=== PATIENT | male | born 1985 | race Caucasian/White ===

== ENCOUNTER 2023-01-05 01:41 | Emergency (ER) | payer OTHER, SELFPAY ==
[2023-01-05 01:42] VITALS: BP 136/93; PULSE 74; RESP 16; TEMP 36.5; O2SAT 100
--- NOTE | 2023-01-05 02:22 | ED.GENADULT ---
HPI - General Adult General Chief complaint: Eye Problems Stated complaint: eye irritation Time Seen by Provider: 01/05/23 02:03 History of Present Illness HPI narrative: patient is a 37-year-old gentleman presents emerged from with chief complaint of foreign body sensation in the left eye. 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 Related Data Allergies Allergy/AdvReac Type Severity Reaction Status Date / Time Penicillins Allergy Mild HIVES Unverified 05/21/08 12:42 amoxicillin Allergy Unknown Verified 12/08/14 13:34 Review of Systems Review of Systems: A 10 system review of systems was completed on the patient and is negative except for what is stated in the HPI. Nursing and ancillary documentation was reviewed. [facility], [facility] Family History Family History Other Family history of malignant neoplasm Social History Social History Smoking status: Never smoker Alcohol intake: current Exam Narrative: GENERAL: Well-appearing, well-nourished, and in no acute distress. HEAD: Normocephalic, atraumatic. EYES: PERRLA and EOMI. Small foreign body present at the 2 o'clock position ENT: Nares clear, no rhinorrhea or epistaxis. Mucous membranes moist. NECK: Supple. CHEST: Clear to auscultation. No respiratory distress. HEART: Regular rate and rhythm. No murmur heard. Normal peripheral pulses. ABDOMEN: Soft, nontender, nondistended, normal active bowel sounds. EXTREMITIES: Normal range of motion. No edema. SKIN: Warm, dry, no rash. NEURO: No focal deficits. Alert and oriented x3. PSYCH: Normal mood and affect. Course Vital Signs Vital signs: Vital Signs Temperature 36.5 C 01/05/23 01:42 Pulse Rate 74 01/05/23 01:42 Respiratory Rate 16 01/05/23 01:42 Blood Pressure 136/93 H 01/05/23 01:42 Pulse Oximetry 100 01/05/23 01:42 Oxygen Delivery Room Air 01/05/23 01:42 Temperature 36.5 C 01/05/23 01:42 Pulse Rate 74 01/05/23 01:42 Respiratory Rate 16 01/05/23 01:42 Blood Pressure 136/93 H 01/05/23 01:42 Pulse Oximetry 100 01/05/23 01:42 Oxygen Delivery Room Air 01/05/23 01:42 Procedures FB Removal Eye Foreign Body #1: Foreign Body Removal Date: 01/05/23 Foreign Body Removal Time: 02:25 Time Out performed: Yes Location: eye (L) Topical anesthetic used: tetracaine Foreign body: metal Evidence of corneal penetration: No Technique: needle Procedure performed under: direct visualization with magnification Post-procedure medication: ophthalmic antibiotic Patient tolerated procedure: well Medical Decision Making Vital Signs Vital Signs: Vital Signs Temperature 36.5 C 01/05/23 01:42 Pulse Rate 74 01/05/23 01:42 Respiratory Rate 16 01/05/23 01:42 Blood Pressure 136/93 H 01/05/23 01:42 Pulse Oximetry 100 01/05/23 01:42 Oxygen Delivery Room Air 01/05/23 01:42 Temperature 36.5 C 01/05/23 01:42 Pulse Rate 74 01/05/23 01:42 Respiratory Rate 16 01/05/23 01:42 Blood Pressure 136/93 H 01/05/23 01:42 Pulse Oximetry 100 01/05/23 01:42 Oxygen Delivery Room Air 01/05/23 01:42 Discharge Plan Discharge Clinical Impression: Acute foreign body of cornea Qualifiers: Encounter type: initial encounter Laterality: left Qualified Code(s): T15.02XA - Foreign body in cornea, left eye, initial encounter Patient Disposition: Home, Self-Care Condition: Stable Instructions: Antibiotic Form, Eye Foreign Body (ED) Prescriptions: New moxifloxacin [Vigamox] 0.5 % drops 1 drp EACH EYE TID 7 Days Qty: 3 0RF Follow-up/Referrals: Sherry Lima
[2023-01-05 03:22] VITALS: BP 128/79; PULSE 68; RESP 15; O2SAT 100
== END 2023-01-05 03:23 | disposition home or self-care (01) ==
PROVIDERS: Emergency Provider Emergency Medicine
DX: T15.02XA Foreign body in cornea, left eye, initial encounter (principal); W44.8XXA Other foreign body entering into or through a natural orifice, initial encounter
CPT/HCPCS: 65220; 99283